=== PATIENT | male | born 1950 | race African-American/Black ===

== ENCOUNTER 2018-04-12 12:58 | Emergency (ER) | payer MEDICARE ==
[~2018-04-12] VITALS: Ht 182.9 cm; Wt 84.1 kg
[2018-04-12 13:04] VITALS: BP 132/87; TEMP 98.3
[2018-04-12] MEDS ORDERED: TYLENOL 500MG500 MG PO (16:29)
[2018-04-12] MEDS ORDERED: NAPROXEN 3375 MG/TAB PO (16:29)
[2018-04-12 16:35] VITALS: PULSE 64
== END 2018-04-12 16:36 | disposition home or self-care (01) ==
LOC: COL.ER 12:58
DX: S06.0X0A Concussion without loss of consciousness, initial encounter (principal); F43.10 Post-traumatic stress disorder, unspecified; W19.XXXA Unspecified fall, initial encounter; W22.8XXA Striking against or struck by other objects, initial encounter; Y92.59 Other trade areas as the place of occurrence of the external cause

== ENCOUNTER 2023-05-13 10:05 | Day surgery (SDC) | payer OTHER ==
[~2023-05-13] VITALS: Ht 180.3 cm; Wt 65.8 kg
[~2023-05-13 10:05] MED LIST: LR 1,000 ML IV SCH; NAPROXEN 3375 MG/TAB PO; TYLENOL 500MG500 MG PO
[2023-05-13 10:30] VITALS: BP 123/76; PULSE 59; TEMP 98
[2023-05-13 11:00] LABS: TRICYCLIC ANTIDEPRESS URINE NEGATIVE (NEGATIVE)
[2023-05-13] MEDS ORDERED: Ondansetron 4 MG/2 ML VIAL ONE (11:04)
[2023-05-13] MEDS ORDERED: Rocuronium 50 MG/5 ML Multi-Dose VIAL ONE (11:04)
[2023-05-13] MEDS ORDERED: fentaNYL 50 MCG/ML 2 ML VIAL ONE (11:04)
--- NOTE | 2023-05-13 11:15 | NUR ---
RN imforms EKG is cancelled.
--- NOTE | 2023-05-13 11:25 | NUR ---
1020-PT AMBULATED TO BAY 7 WITHOUT DIFFICULTY. AT BEDSIDE. UDS COLLECTED. CONSENTS SIGNED. CALL LIGHT WITHIN REACH. PT DENIES ANY NEEDS AT THIS TIME. 1030-VS OBTAINED. 1107-M WILBERT NAVAS NOTIFIED OF UDS RESULTS. RECEIVED ORDERS TO CANCEL SURGERY. 1109-DR OLVERA NOTIFIED OF UDS RESULTS. DR OLVERA IS TO CANCEL SURGERY AND NEED TO BE RESCHEDULED. 1111-Gisela ATKINS CRNA AT BEDSIDE TO DISCUSS WITH PT THE NEED TO CANCEL HIS SURGERY A RESULT OF HIS UDS. 1125-PT AMBULATED OFF UNIT ACCOMPANIED BY HIS .
== END 2023-05-13 11:25 | disposition home or self-care (01) ==
LOC: SDCO 10:05
PROVIDERS: Surgery
DX: K40.90 Unilateral inguinal hernia, without obstruction or gangrene, not specified as recurrent (principal); Z53.8 Procedure and treatment not carried out for other reasons
CPT/HCPCS: J2405; J2704; J3010

== ENCOUNTER → 2023-08-26 | Day surgery (SDC) | payer OTHER ==
[~2023-08-26] MED LIST changes: -LR 1,000 ML IV SCH
== END | disposition home or self-care (01) ==
LOC: SDCO 11:15
DX: K40.90 Unilateral inguinal hernia, without obstruction or gangrene, not specified as recurrent (principal); Z53.9 Procedure and treatment not carried out, unspecified reason